=== PATIENT | male | born 1990 | race Caucasian/White ===

== ENCOUNTER 2022-04-13 12:56 | Emergency (ER) | payer OTHER, SELFPAY ==
--- NOTE | 2022-04-13 13:00 | ED.URI ---
HPI - URI/Sore Throat General Chief Complaint: Upper Respiratory Infection Stated Complaint: Sore Throat Time Seen by Provider: 04/13/22 13:00 Source: patient and RN notes reviewed History of Present Illness HPI Narrative: patient is a 31-year-old male who presents to the Urgent Care with complaints of a sore throat since Sunday. Patient states he has also had a fever and has been taking Advil. Denies any other upper respiratory complaints. Denies any known fevers. No other acute complaints. No acute distress noted. Patient aware of the plan of care. Some parts of this dictation were generated by voice recognition software and may contain typographical and/or grammatical inaccuracies. Related Data Allergies Allergy/AdvReac Type Severity Reaction Status Date / Time No Known Allergies Allergy Verified 04/13/22 13:20 Review of Systems Review of Systems: CONSTITUTIONAL: Denies fever, chills, or sweats. EYES: Denies visual changes, redness, or discharge. ENT: Denies rhinorrhea, congestion, Otalgia. Reports of sore throat CARDIOVASCULAR: Denies chest pain, palpitations, or edema. RESPIRATORY: Denies cough or dyspnea. GASTROINTESTINAL: Denies abdominal pain, nausea, vomiting, or diarrhea. GENITOURINARY: Denies dysuria or hematuria. SKIN: Denies rash or itching. MUSCULOSKELETAL: Denies back pain, joint pain, or myalgia. NEUROLOGIC: Denies headache, numbness, or weakness. All other systems reviewed are negative, except as documented in HPI. PMFSH Comments CONSTITUTIONAL: Denies fever, chills, or sweats. EYES: Denies visual changes, redness, or discharge. ENT: Denies rhinorrhea, congestion, sore throat, or otalgia. CARDIOVASCULAR: Denies chest pain, palpitations, or edema. RESPIRATORY: Denies cough or dyspnea. GASTROINTESTINAL: Denies abdominal pain, nausea, vomiting, or diarrhea. GENITOURINARY: Denies dysuria or hematuria. SKIN: Denies rash or itching. MUSCULOSKELETAL: Denies back pain, joint pain, or myalgia. NEUR At the time of my signature, I reviewed and agree with the nursing past medical, surgical, social, and family history. There is no relevant family history pertinent to the patient complaint.OLOGIC: Denies headache, numbness, or weakness. PSYCHIATRIC: Denies anxiety or depression. All other systems reviewed are negative, except as documented in HPI. Exam Narrative: GENERAL: This is a well-nourished, well-developed patient, in no apparent distress. HEAD: normocephalic, atraumatic. EYES: PERRL. Sclera clear/white. Vision is grossly intact. EARS: External ears normal, auditory canals clear and without drainage, TMs normal without perforation. Hearing grossly intact. NOSE: External nose normal with no obvious nasal discharge, nares without redness, no rhinorrhea. THROAT: Mucous membranes moist. moderate erythema to posterior oropharynx with moderate tonsillar edema and bilateral exudate with moderate postnasal drainage. NECK: Neck supple, non-tender Bilateral submandibular lymphadenopathy CARDIOVASCULAR: Regular rate and rhythm without murmurs, gallops, or rubs. RESPIRATORY: Clear to auscultation. Breath sounds equal bilaterally. No wheezes, rales, or rhonchi. SKIN: warm, intact with no suspicious lesions or rash, good texture and turgor. NEURO: awake, alert, and oriented to person, place and time. There were no obvious focal neurologic abnormalities. EXTREMITIES: No clubbing, cyanosis, or edema. Course Course Level of Care: Express Care Visit Vital Signs Vital signs: Vital Signs Temperature 99.0 F 04/13/22 13:04 Pulse Rate 100 04/13/22 13:04 Respiratory Rate 20 04/13/22 13:04 Blood Pressure 134/79 04/13/22 13:04 Pulse Oximetry 98 04/13/22 13:04 Oxygen Delivery Room Air 04/13/22 13:04 Temperature 99.0 F 04/13/22 13:04 Pulse Rate 100 04/13/22 13:04 Respiratory Rate 20 04/13/22 13:04 Blood Pressure 134/79 04/13/22 13:04 Pulse Oximetry 98 04/13/22 13:04 Oxygen Delivery
[2022-04-13 13:04] VITALS: BP 134/79; PULSE 100; RESP 20; TEMP 37.2; O2SAT 98
== END 2022-04-13 13:25 | disposition home or self-care (01) ==
PROVIDERS: Emergency Provider Nurse Practitioner Family; PCP Emergency Medicine
DX: J02.0 Streptococcal pharyngitis (principal)
CPT/HCPCS: 99213; G0463

== ENCOUNTER 2022-10-07 11:50 | Emergency (ER) | payer OTHER, SELFPAY ==
[2022-10-07 11:55] VITALS: BP 143/83; PULSE 78; RESP 16; TEMP 37; O2SAT 100
--- NOTE | 2022-10-07 12:47 | ED.GENADULT ---
HPI - General Adult General Chief complaint: Skin/Abscess/Foreign Body Stated complaint: SKin Sore Source: patient Mode of arrival: ambulatory Limitations: no limitations History of Present Illness HPI narrative: Patient presents for evaluation of swollen, painful lesion to the inferior aspect of the nose. Symptom onset 3 days ago. No history of similar symptoms. He had some type of nasal surgery in the past but has done well since that time. No fever, chills, nausea, vomiting. No purulence from the affected area. He is not diabetic. He does not smoke. Related Data Allergies Allergy/AdvReac Type Severity Reaction Status Date / Time No Known Allergies Allergy Verified 10/07/22 12:31 Review of Systems Review of Systems: CONSTITUTIONAL: Denies fever, chills, or sweats. EYES: Denies visual changes, redness, or discharge. ENT: Denies rhinorrhea, congestion, sore throat, or otalgia. CARDIOVASCULAR: Denies chest pain, palpitations, or edema. RESPIRATORY: Denies cough or dyspnea. GASTROINTESTINAL: Denies abdominal pain, nausea, vomiting, or diarrhea. GENITOURINARY: Denies dysuria or hematuria. SKIN: Reports painful swollen lesion to the inferior aspect of the nose. MUSCULOSKELETAL: Denies back pain, joint pain, or myalgia. NEUROLOGIC: Denies headache, numbness, dizziness, or weakness. PSYCHIATRIC: Denies anxiety or depression. PMF Past Medical History Medical History History of deviated nasal septum Surgical History Surgical History History of nasal surgery Family History Family History Mother Family history non-contributory Social History Social History Smoking status: Never smoker Substance use: never Living arrangements: with family Gender identity (if verbalized by the patient): Male Sexual Orientation (if Verbalized by the Patient): Straight or Heterosexual Spiritual care concerns: No Exam Narrative: GENERAL: Well-appearing, well-nourished, and in no acute distress. HEAD: Normocephalic, atraumatic. EYES: PERRLA and EOMI. ENT: There is swelling to the inferior aspect of the nose surrounding and extending into the nares. There is erythema to nasal mucosa bilaterally. There is crusted drainage surrounding nares bilaterally. Mucous membranes moist. Oropharynx without tonsillar hypertrophy exudate or other lesions. Bilateral TMs pearly [place] nonbulging NECK: Supple. No adenopathy or masses. No carotid bruits or JVD CHEST: Clear to auscultation. No respiratory distress. No wheezes rales or rhonchi HEART: Regular rate and rhythm. No murmur heard. Normal peripheral pulses. ABDOMEN: Soft, nontender, nondistended, normal active bowel sounds. EXTREMITIES: Normal range of motion. No edema. SKIN: Warm, dry, no rash. NEURO: No focal deficits. Alert and oriented x3. PSYCH: Normal mood and affect. Course Course Emergency Course: This is a 31-year-old male who presented for evaluation of swelling and pain to inferior aspect of the nose. This appears to be a cellulitis, most likely MRSA. I do not appreciate a drainable fluid collection at the present time. Will treat with Bactrim and Keflex. He should use mupirocin inside both nares. Follow-up with primary doctor. Go to the ER for worsening symptoms. Advise he should not manipulate the area. Patient in agreement with plan of care. Level of Care: Express Care Visit Vital Signs Vital signs: Vital Signs Temperature 37.0 C 10/07/22 11:55 Pulse Rate 78 10/07/22 11:55 Respiratory Rate 16 10/07/22 11:55 Blood Pressure 143/83 H 10/07/22 11:55 Pulse Oximetry 100 10/07/22 11:55 Oxygen Delivery Room Air 10/07/22 11:55 Temperature 37.0 C 10/07/22 11:55 Pulse Rate 78 10/07/22 1
== END 2022-10-07 12:50 | disposition home or self-care (01) ==
PROVIDERS: Emergency Provider Nurse Practitioner
DX: L03.211 Cellulitis of face (principal); L02.01 Cutaneous abscess of face
CPT/HCPCS: 99213; G0463